=== PATIENT | male | born 1975 | race Caucasian/White ===

== ENCOUNTER 2019-03-01 07:35 | Emergency (ER) | payer OTHER ==
[2019-03-01 07:39] VITALS: TEMP 98.1
[2019-03-01] MEDS ORDERED: KETOROLAC 30 MG/ML 1 ML VIAL IM STA (07:56)
--- NOTE | 2019-03-01 08:01 | ED ---
General Adult HPI - General Chief complaint: Fall Stated complaint: slip & fall/arm pain Time Seen by Provider: 03/01/19 07:41 Source: patient, family, RN notes reviewed Mode of arrival: ambulatory Limitations: no limitations - History of Present Illness Initial comments: 43-year-old male with a past medical history of hypertension presents to the emergency department for a chief of left arm pain. Patient states that just prior to arrival he slipped and fell getting into his truck and landed on his left elbow. States he has pain into his left shoulder. Patient denies hitting his head or neck. States it is painful to move his shoulder.Patient has no other complaints at this time including shortness of breath, chest pain, abdominal pain, nausea or vomiting, headache, or visual changes. - Related Data Allergies Allergy/AdvReac Type Severity Reaction Status Date / Time No Known Allergies Allergy Verified 03/01/19 07:39 Review of Systems ROS Statement: Those systems with pertinent positive or pertinent negative responses have been documented in the HPI. ROS Other: All systems not noted in ROS Statement are negative. Past Medical History Past Medical History: Hypertension History of Any Multi-Drug Resistant Organisms: None Reported Past Surgical History: Cholecystectomy, Orthopedic Surgery Additional Past Surgical History / Comment(s): Vesectomy Past Psychological History: No Psychological Hx Reported Smoking Status: Never smoker Past Alcohol Use History: Occasional Past Drug Use History: None Reported General Exam Limitations: no limitations General appearance: alert, in no apparent distress Head exam: Present: atraumatic, normocephalic, normal inspection Eye exam: Present: normal appearance, PERRL, EOMI. Absent: scleral icterus, conjunctival injection, periorbital swelling ENT exam: Present: normal exam, mucous membranes moist Neck exam: Present: normal inspection. Absent: tenderness, meningismus, lymphadenopathy Respiratory exam: Present: normal lung sounds bilaterally. Absent: respiratory distress, wheezes, rales, rhonchi, stridor Cardiovascular Exam: Present: regular rate, normal rhythm, normal heart sounds. Absent: systolic murmur, diastolic murmur, rubs, gallop, clicks Extremities exam: Present: tenderness (Tenderness to the generalized left shoulder), normal capillary refill (Capillary refill less than 2 seconds, radial pulse 2+ in the left upper extremity), other (Sensation intact in the left upper extremity). Absent: full ROM (Patient unable to move left shoulder secondary to pain) Course Vital Signs 03/01/19 07:37 Temperature 98.1 F Pulse Rate 71 Respiratory 20 Rate Blood Pressure 215/99 O2 Sat by Pulse 99 Oximetry Medical Decision Making - Medical Decision Making X-ray of the left shoulder and left humerus were obtained which showed no acute fracture or dislocation. She was given Toradol and had CT improvement in pain. Blood pressure was rechecked and is 157/98. Hypertension initially likely secondary to pain. Patient was given a sling and I did discuss risk of adhesive capsulitis and to practice range of motion while using this and only to use it when needed. Recommend he follows up with ortho. Recommend he return here if he has any worsening symptoms. Disposition Clinical Impression: Shoulder pain, left Disposition: HOME SELF-CARE Condition: Good Instructions (If sedation given, give patient instructions): Shoulder Pain (ED) Additional Instructions: Please take Motrin for pain. If pain is severe take Tylenol [address] operate machinery while taking Tylenol 3 as this can make you drowsy. Use sling as needed but remember to do range of motion exercises to prevent frozen shoulder. Follow-up with orthopedics in one to 2 days. If you're having any worsening symptoms return to the emergency department. Is patient prescribed a controlled substance at d/c from ED?: No Referrals: Diony Garcia DO [Primary Care Provider] - 1-2 days Bert Figueroa DO [Medical Doctor] - 1-2 days Time of Disposition: 09:17
--- NOTE | 2019-03-01 08:43 | XR ---
EXAMINATION TYPE: XR shoulder complete LT, XR humerus LT DATE OF EXAM: 03/01/2019 CLINICAL HISTORY: Left shoulder and humerus pain after fall TECHNIQUE: Three views of the left shoulder are obtained. 2 views of the left humerus were also obta ined. COMPARISON: None. FINDINGS: There is no acute fracture/dislocation evident in the left shoulder. Subcortical cysts ar e seen in the left humerus, likely from arthropathy. Very minimal arthropathy of the acromioclavicula r joint is seen as small marginal spurs. The acromioclavicular and glenohumeral joint spaces appear a ligned. Old healed left rib fractures are seen. IMPRESSION: There is no acute fracture or dislocation in the left shoulder or humerus.
[2019-03-01] MEDS ORDERED: ACET/COD 300 MG/30 MG STARTER PACK 6 TAB BTL PO STA (09:18)
[2019-03-01 09:34] VITALS: BP 123/76; PULSE 81; RESP 16
== END 2019-03-01 09:32 | disposition home or self-care (01) ==
LOC: EC 07:35
DX: M25.512 Pain in left shoulder (principal); I10 Essential (primary) hypertension
CPT/HCPCS: 73030; 73060; 99283; 96372; J1885

== ENCOUNTER 2020-07-24 15:57 | Emergency (ER) | payer BC, OTHER ==
[2020-07-24 16:03] VITALS: TEMP 98.6
[2020-07-24] MEDS ORDERED: NITROGLYCERIN SL TABS 0.4 MG TAB SUBLINGUAL STA (16:24)
--- NOTE | 2020-07-24 16:27 | ED ---
Chest Pain HPI - General Chief Complaint: Chest Pain Stated Complaint: Chest pain Time Seen by Provider: 07/24/20 16:13 Source: patient Mode of arrival: wheelchair Limitations: no limitations - History of Present Illness Initial Comments: This a 44-year-old male with a history of diabetes, hypertension however not currently treated who presents emergency department for chest pain. The patient states it started this morning. He states it feels like a pressure sensation in the left side of his chest. He states that when started he was just sitting in his truck and not doing anything in particular. He states that nothing seems to make it better or worse however it seemed to worsen throughout the day. He states it then started radiating into his left neck and left arm. No radiation into the back. He states that he got a little bit of dizziness associated with this and also nausea however no vomiting. He states he does have chronic back pain and chronic headaches which are unchanged. He denies any abdominal pain, diarrhea. No fevers or chills. No cough. Patient does not currently feel short of breath or no history of PE or DVT. He states that he picked up a blood pressure cuff and was checking his blood pressure throughout the day today and it was significantly elevated. He called his primary doctor who advised him to come to the emergency department. The patient otherwise states that he believes he had a grandmother with heart disease however no first 3 relatives that he knows about. He is under quite a bit of stress currently because his mother was enrolled in hospice however states he does not feel more stress today than other days. No other complaints. - Related Data Home Medications Medication Instructions Recorded Confirmed Aspirin 162 mg PO ONCE PRN 07/24/20 07/24/20 Ibuprofen [Motrin Ib] 600 mg PO Q8H PRN 07/24/20 07/24/20 metFORMIN HCL 1,000 mg PO BID 07/24/20 07/24/20 Previous Rx's Medication Instructions Recorded amLODIPine [Norvasc] 5 mg PO DAILY #14 tab 07/24/20 Allergies Allergy/AdvReac Type Severity Reaction Status Date / Time No Known Allergies Allergy Verified 07/24/20 16:48 Review of Systems ROS Statement: Those systems with pertinent positive or pertinent negative responses have been documented in the HPI. ROS Other: All systems not noted in ROS Statement are negative. EKG Findings - EKG Comments: EKG Findings:: EKG showing normal sinus rhythm with a rate of 70. No abnormal ST 7 changes or T-wave inversion. QTC is 423. Other intervals normal. No ectopy. Past Medical History Past Medical History: Hypertension History of Any Multi-Drug Resistant Organisms: None Reported Past Surgical History: Cholecystectomy, Orthopedic Surgery Additional Past Surgical History / Comment(s): Vesectomy Past Psychological History: No Psychological Hx Reported Past Alcohol Use History: Occasional Past Drug Use History: None Reported General Exam - General Exam Comments Initial Comments: Constitutional: Awake alert Appears comfortable Head: Normocephalic atraumatic Eyes: no conjunctival injection No scleral icterus EOMI Neck: No JVD Supple Heart: Regular rate rhythm normal S1-S2 no murmurs Lungs: Clear to auscultation bilaterally No wheezing No rales Abdomen: Soft nondistended nontender Extremities: Non edematous DP pulses intact and equal Radial pulses intact and equal Neuro: A&Ox3 No focal neurologic deficits Psych: Appropriate mood and affect Limitations: no limitations Course Vital Signs 07/24/20 07/24/20 07/24/20 16:00 16:46 16:49 Temperature 98.6 F Pulse Rate 78 70 75 Respiratory 20 18 18 Rate Blood Pressure 202/96 168/98 152/93 O2 Sat by Pulse 98 94 L 98 Oximetry 07/24/20 07/24/20 07/24/20 18:06 18:41 20:02 Temperature Pulse Rate 77 86 69 Respiratory 18 18 16 Rate Blood Pressure 157/92 173/109 157/93 O2 Sat by Pulse 98 98 97 Oximetry Chest Pain MDM - MDM This is a 44-year-old male who presents emergency department for chest pain. The patient did have somewhat of concerning story however the symptoms were not exertional. He was given a nitroglycerin in the emergency department and had actually no change in symptoms. However the patient very minimal chest pain while here. He states that he had one episode where it seemed to increase and then went back to the 0. On my final reevaluation the patient was chest pain- free. EKG was unremarkable. Troponin was negative 2. Chest x-ray was negative. The patient had a negative d-dimer. I did give the patient had Norvasc on the emergency department for his significant hypertension. I gave him 2 weeks worth of this as well. Skin follow-up closely with his primary doctor, Dr. John as an outpatient for further evaluation. I did offer him observation in the hospital due to his risk factors however the patient stated that he would prefer to go home and follow-up with his primary doctor. I told to return for any worsening, recurrent, or changing symptoms. Questions were answered. Disposition Clinical Impression: Chest pain Disposition: HOME SELF-CARE Condition: Stable Instructions (If sedation given, give patient instructions): Chest Pain (ED), Hypertension (ED) Prescriptions: amLODIPine [Norvasc] 5 mg PO DAILY #14 tab Is patient prescribed a controlled substance at d/c from ED?: No Referrals: All John MD [Primary Care Provider] - 1-2 days
--- NOTE | 2020-07-24 16:27 | XR ---
EXAMINATION TYPE: XR chest 2V DATE OF EXAM: 07/24/2020 COMPARISON: NONE HISTORY: Chest pain. TECHNIQUE: Frontal and lateral views of the chest are obtained. FINDINGS: There is no focal air space opacity, pleural effusion, or pneumothorax seen. The cardiac silhouette size is mildly enlarged. Age-indeterminate suspected old left lateral rib fractures are pr esent. IMPRESSION: Mild cardiomegaly without acute pulmonary process.
[2020-07-24 16:45] LABS: Basophils % (A) 0 %; Eosinophils # (A) 0.2 k/uL (0-0.7); Eosinophils % (A) 3 %; HCT 44.4 % (39.0-53.0); HGB 15.9 gm/dL (13.0-17.5); Lymphocytes # (A) 1.5 k/uL (1.0-4.8); Lymphocytes % (A) 26 %; MCH 30.4 pg (25.0-35.0); MCHC 35.8 g/dL (31.0-37.0); MCV 84.9 fL (80.0-100.0); Mean Platelet Volume 6.6; Monocytes # (A) 0.3 k/uL (0-1.0); Monocytes % (A) 6 %; Neutrophils # (A) 3.8 k/uL (1.3-7.7); Neutrophils % (A) 65 %; Platelet Count 198 k/uL (150-450); RBC 5.23 m/uL (4.30-5.90); RDW 13.4 % (11.5-15.5); WBC 5.9 k/uL (3.8-10.6)
[2020-07-24 17:00] LABS: ALT 40 U/L (4-49); AST 35 U/L (17-59); African American GFR (CKD) >90 (>60 ml/min/1.73 sqM); Albumin 4.4 g/dL (3.5-5.0); Alkaline Phosphatase 61 U/L (38-126); Anion Gap 8 mmol/L; Blood Urea Nitrogen 15 mg/dL (9-20); Calcium 9.7 mg/dL (8.4-10.2); Carbon Dioxide 24 mmol/L (22-30); Chloride 105 mmol/L (98-107); Glucose 326 mg/dL (74-99); Magnesium 1.5 mg/dL (1.6-2.3); Non-African American GFR(CKD) >90 (>60 ml/min/1.73 sqM); Sodium 137 mmol/L (137-145); Total Bilirubin 0.5 mg/dL (0.2-1.3); Total Protein 7.1 g/dL (6.3-8.2)
[2020-07-24 17:10] LABS: D-Dimer 0.31 mg/L FEU (<0.60); INR 0.9 (<1.2); Partial Thromboplastin Time 21.5 sec (22.0-30.0); Prothrombin Time 10.1 sec (9.0-12.0)
[2020-07-24] MEDS ORDERED: amLODIPine 5 MG TAB PO STA (18:32)
[2020-07-24 20:04] VITALS: BP 157/93; PULSE 69; RESP 16
== END 2020-07-24 20:07 | disposition home or self-care (01) ==
LOC: EC 15:57
DX: R07.89 Other chest pain (principal); R42 Dizziness and giddiness; R11.0 Nausea; M54.9 Dorsalgia, unspecified; R51.9 Headache, unspecified; G89.29 Other chronic pain; E11.9 Type 2 diabetes mellitus without complications; I10 Essential (primary) hypertension; Z79.84 Long term (current) use of oral hypoglycemic drugs; Z79.1 Long term (current) use of non-steroidal anti-inflammatories (NSAID); Z79.899 Other long term (current) drug therapy
CPT/HCPCS: 36415; 71046; 80053; 83735; 83880; 84484; 85025; 85379; 85610; 85730; 93005; 99285

== ENCOUNTER → 2020-08-08 | Outpatient (CLI) | payer BC ==
--- NOTE | 2020-08-08 16:14 | ECHOS ---
STRESS ECHOCARDIOGRAM LUMASON: INDICATIONS: Chest pain. MEDICATIONS: BASELINE HEART RATE: 97 BASELINE BLOOD PRESSURE: 133/80 MAXIMUM HEART RATE: 161 MAXIMUM BLOOD PRESSURE: 201/89 85% MPHR: 150 100% MPHR: 176 METS: 7.3 MAXIMUM STAGE REACHED: 2 TOTAL EXERCISE TIME: 6:01 CLINICAL INFORMATION: Baseline rhythm is sinus mechanism, rate of 97, normal axis and intervals. Poor R progression, cannot exclude inferoapical myocardial infarction. Baseline blood pressure 133/80 mmHg. The patient exercised on Edenilson protocol for 6 minute 1 seconds reaching peak rate 161 beats per minute which is equal to 91% maximum predicted heart rate. Peak blood pressure 201/89 mmHg. The test was terminated secondary to fatigue. There was no chest pain. Electrocardiograph monitoring revealed no evidence of diagnostic ischemic ST deviation. FINDINGS: Baseline echocardiogram revealed normal wall motion. At peak exercise, there was normal wall motion augmentation with no hypokinesis or dyskinesis. CONCLUSION: 1. Decreased exercise tolerance with normal electrocardiograph response to ox in normal echocardiograph response to exercise. 2. Normal stress echocardiogram with no evidence of stress-induced ischemia. MMODL / IJN: [id number] /
== END | disposition home or self-care (01) ==
LOC: RADECHMAIN 11:57
PROVIDERS: ATTEND Family Medicine
DX: R07.9 Chest pain, unspecified (principal)
CPT/HCPCS: 93351

== ENCOUNTER 2022-03-07 05:11 | Emergency (ER) | payer SELFPAY ==
[2022-03-07] MEDS ORDERED: SODIUM CHLORIDE 0.9% 1,000 ML IV STA ×2 (05:16→06:23)
[2022-03-07 05:17] LABS: Glucose,Whole Blood 333 mg/dL (70-110)
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
[2022-03-07 05:25] VITALS: TEMP 98
[2022-03-07 05:27] LABS: Basophils # (A) 0.1 k/uL (0-0.2); Basophils % (A) 1 %; Eosinophils # (A) 0.1 k/uL (0-0.7); Eosinophils % (A) 1 %; HCT 46.1 % (39.0-53.0); HGB 16.5 gm/dL (13.0-17.5); Hyperchromasia Moderate; Lymphocytes # (A) 1.7 k/uL (1.0-4.8); Lymphocytes % (A) 20 %; MCH 29.4 pg (25.0-35.0); MCHC 35.8 g/dL (31.0-37.0); Mean Platelet Volume 6.8; Monocytes # (A) 0.4 k/uL (0-1.0); Monocytes % (A) 5 %; Neutrophils # (A) 6.3 k/uL (1.3-7.7); Neutrophils % (A) 72 %; Platelet Count 240 k/uL (150-450); RBC 5.62 m/uL (4.30-5.90); RDW 12.8 % (11.5-15.5); WBC 8.7 k/uL (3.8-10.6)
[2022-03-07] MEDS ORDERED: NALOXONE 0.4 MG/ML 1 ML VIAL IM STA (05:34)
[2022-03-07 05:37] LABS: ALT 36 U/L (4-49); AST 36 U/L (17-59); African American GFR (CKD) >90 (>60 ml/min/1.73 sqM); Albumin 4.9 g/dL (3.5-5.0); Alkaline Phosphatase 78 U/L (38-126); Anion Gap 19 mmol/L; Blood Urea Nitrogen 10 mg/dL (9-20); Calcium 9.5 mg/dL (8.4-10.2); Carbon Dioxide 19 mmol/L (22-30); Chloride 100 mmol/L (98-107); Glucose 352 mg/dL (74-99); Non-African American GFR(CKD) >90 (>60 ml/min/1.73 sqM); Sodium 138 mmol/L (137-145); Total Bilirubin 0.6 mg/dL (0.2-1.3); Total Protein 8.1 g/dL (6.3-8.2)
[2022-03-07 05:42] LABS: Partial Thromboplastin Time 21.5 sec (22.0-30.0); Prothrombin Time 10.5 sec (9.0-12.0)
[2022-03-07] MEDS ORDERED: ONDANSETRON 4 MG/2 ML VIAL IVP STA (05:42)
[2022-03-07 05:43] LABS: Alcohol 132 mg/dL
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
[2022-03-07 06:37] VITALS: BP 142/89; PULSE 107; RESP 14
[2022-03-07 06:50] LABS: Amphetamine Screen,Urine Not Detected (NotDetected); Barbiturate Screen,Urine Not Detected (NotDetected); Benzodiazepines Screen,Urine Not Detected (NotDetected); Cocaine Screen,Urine Detected (NotDetected); Methadone Screen, Urine Not Detected (NotDetected); Opiate Screen,Urine Not Detected (NotDetected); Oxycodone Screen, Urine Not Detected (NotDetected); Phencyclidine Screen,Urine Not Detected (NotDetected); Tricyclic Antidepressant,Urine Not Detected (NotDetected); Urn Cannabinoid Scrn Not Detected (NotDetected)
== END 2022-03-07 07:38 | disposition home or self-care (01) ==
LOC: EC 05:11
DX: S20.211A Contusion of right front wall of thorax, initial encounter (principal); T40.2X1A Poisoning by other opioids, accidental (unintentional), initial encounter; M47.812 Spondylosis without myelopathy or radiculopathy, cervical region; F10.129 Alcohol abuse with intoxication, unspecified; I47.1 Supraventricular tachycardia; I10 Essential (primary) hypertension; Z79.82 Long term (current) use of aspirin; Z79.899 Other long term (current) drug therapy; V89.2XXA Person injured in unspecified motor-vehicle accident, traffic, initial encounter; Y92.411 Interstate highway as the place of occurrence of the external cause
CPT/HCPCS: 36415; 93005; 86900; 86901; 80053; 84484; 85025; 85610; 85730; 86850; 80306; 80320; 72170; 73080; 71045; 72125; 70450; 71260; 74177; 99291; 96374; 96361 ×2; 96372; J2310; J2405; Q9967

== ENCOUNTER 2022-12-27 10:17 | Emergency (ER) | payer SELFPAY ==
[2022-12-27] MEDS ORDERED: KETOROLAC 15 MG/ML 1 ML VIAL IVP STA (10:28)
[2022-12-27] MEDS ORDERED: HYDROmorphone 1 MG/ML 1 ML SYRINGE IVP STA ×2 (10:29→10:46)
[2022-12-27] MEDS ORDERED: ONDANSETRON 4 MG/2 ML VIAL IVP STA (10:29)
[2022-12-27 10:33] VITALS: TEMP 97.5
--- NOTE | 2022-12-27 10:33 | ED ---
General Adult HPI - General Chief complaint: Extremity Injury, Upper Stated complaint: Fall, right shoulder injury Time Seen by Provider: 12/27/22 10:27 Source: patient, RN notes reviewed, old records reviewed Mode of arrival: wheelchair Limitations: physical limitation - History of Present Illness Initial comments: 47-year-old male with fall, right shoulder injury. Patient had obvious deformity to the right shoulder. He denies head or neck trauma. Denies any other extremity injury. Pain is isolated to the right shoulder. - Related Data Home Medications Medication Instructions Recorded Confirmed Aspirin 162 mg PO ONCE PRN 07/24/20 07/24/20 Ibuprofen [Motrin Ib] 600 mg PO Q8H PRN 07/24/20 07/24/20 metFORMIN HCL [Glucophage] 1,000 mg PO BID 07/24/20 07/24/20 Previous Rx's Medication Instructions Recorded amLODIPine [Norvasc] 5 mg PO DAILY #14 tab 07/24/20 Ibuprofen [Motrin] 600 mg PO Q8HR PRN #24 tab 12/27/22 Allergies Allergy/AdvReac Type Severity Reaction Status Date / Time No Known Allergies Allergy Verified 12/27/22 10:23 Review of Systems ROS Statement: Those systems with pertinent positive or pertinent negative responses have been documented in the HPI. ROS Other: All systems not noted in ROS Statement are negative. Past Medical History Past Medical History: Hypertension History of Any Multi-Drug Resistant Organisms: None Reported Past Surgical History: Cholecystectomy, Orthopedic Surgery Additional Past Surgical History / Comment(s): Vesectomy Past Psychological History: No Psychological Hx Reported Smoking Status: Never smoker Past Alcohol Use History: Occasional Past Drug Use History: None Reported General Exam Limitations: physical limitation General appearance: alert, in no apparent distress Head exam: Present: atraumatic, normocephalic Eye exam: Present: normal appearance, PERRL ENT exam: Present: normal exam Neck exam: Present: normal inspection. Absent: tenderness, meningismus Respiratory exam: Present: normal lung sounds bilaterally. Absent: respiratory distress, wheezes Cardiovascular Exam: Present: regular rate, normal rhythm GI/Abdominal exam: Present: soft. Absent: distended, tenderness, guarding Extremities exam: Present: other (Deformity of the right shoulder, suspect dislocation, distal pulses intact, decreased range of motion of the and, decreased compliance auditor strength.) Neurological exam: Present: alert, oriented X3, CN II-XII intact, motor sensory deficit Psychiatric exam: Present: anxious Skin exam: Present: warm, dry, intact Course Vital Signs 12/27/22 12/27/22 12/27/22 10:21 11:19 11:27 Temperature 97.5 F L Pulse Rate 77 78 105 H Respiratory 34 H 18 20 Rate Blood Pressure 198/95 216/104 185/93 O2 Sat by Pulse 99 92 L 96 Oximetry 12/27/22 12/27/22 11:32 11:45 Temperature Pulse Rate 86 75 Respiratory 20 16 Rate Blood Pressure 164/97 159/91 O2 Sat by Pulse 93 L Oximetry - Reevaluation(s) Reevaluation #1: 12/27/22 12:20 Case discussed with orthopedics regarding decreased compliance auditor strength, will arrange for close outpatient follow-up. Procedures - Orthopedic Joint Reduction Joint #1 Consent Obtained: written consent Side: right Joint Reduction Location: shoulder Analgesia: procedural sedation Shoulder Technique Used (if applicable): traction/counter-traction Post-Reduction Neuro Exam: no change Post-Reduction Vascular Exam: intact Post Reduction X-Ray Obtained: Yes Post Reduction X-Ray Results: reduced Splint Applied: Yes Patient Tolerated Procedure: well - Procedural Sedation *Procedural Sedation Start Time: 11:26 *Procedural Sedation Stop Time: 12:20 *Risks,benefits, and alternative therapies discussed?: Yes *Patient indicates understanding of risk/benefit discussion?: Yes *Indications: fracture/dislocation reduction *Previous Adverse Reaction to Anesthesia/Sedation?: No *ASA Class: I *Mallampati Airway Score: 2 Preparation: satellite project site monitor applied, pulse oximeter, capnometry used, supplemental O2 applied, suction/airway equipment at bedside IV Propofol Dose (mgs): 120 Complications: none Patient Tolerated Procedure: well Medical Decision Making - Medical Decision Making Was pt. sent in by a medical professional or institution (, PA, ENTERPRISE ARCHITECT MANAGER, urgent care, hospital, or [facility]...) When possible be specific @ -No Did you speak to anyone other than the patient for history (EMS, parent, family, police, friend...)? What history was obtained from this source @ -No Did you review nursing and triage notes (agree or disagree)? Why? @ -I reviewed and agree with nursing and triage notes Were old charts reviewed (outside hosp., previous admission, EMS record, old EKG, old radiological studies, urgent care reports/EKG's, [facility] records)? Report findings @ -No old charts were reviewed Differential Diagnosis (chest pain, altered mental status, abdominal pain women, abdominal pain men, vaginal bleeding, weakness, fever, dyspnea, syncope, headache, dizziness, GI bleed, back pain, seizure, CVA, palpatations, mental health, musculoskeletal)? @ -Differential Musculoskeletal Muscular strain, contusion, ligament sprain, fracture, arthritis, septic arthritis, bursitis, cellulitis, muscle spasm, nerve compression, DVT, arterial occlusion, herpes zoster, electrolyte abnormality, tumor.... This is not meant to be in all inclusive list EKG interpreted by me (3pts min.). @ -As above X-rays interpreted by me (1pt min.). @ -Initial x-ray shows anterior-inferior shoulder dislocation post reduction film shows satisfactory reduction. CT interpreted by me (1pt min.). @ -None done U/S interpreted by me (1pt. min.). @ -None done What testing was considered but not performed or refused? (CT, X-rays, U/S, labs)? Why? @ -None What meds were considered but not given or refused? Why? @ -None Did you discuss the management of the patient with other professionals (professionals i.e. , PA, ENTERPRISE ARCHITECT MANAGER, lab, RT, psych nurse, transition social worker, associate store leader, teacher, chief growth officer, leather case finisher)? Give summary @ -No Was smoking cessation discussed for >3mins.? @ -No Was critical care preformed (if so, how long)? @ -No Were there social determinants of health that impacted care today? How? (Homelessness, low income, unemployed, alcoholism, drug addiction, transportation, low edu. Level, literacy, decrease access to med. care, alf, rehab)? @ -No Was there de-escalation of care discussed even if they declined (Discuss DNR or withdrawal of care, Hospice)? DNR status @ -No What co-morbidities impacted this encounter? (DM, HTN, Smoking, COPD, CAD, Cancer, CVA, ARF, Chemo, Hep., AIDS, mental health diagnosis, sleep apnea, morbid obesity)? @ -None Was patient admitted / discharged? Hospital course, mention meds given and route, prescriptions, significant lab abnormalities, going to OR and other pertinent info. @27-year-old male with right shoulder dislocation. Patient has intact pulses but decreased sensation and decreased compliance auditor strength in the right hand after the injury. He receives procedural sedation for shoulder dislocation. This was successful. He has intact pulse and some improvement in movement of the right hand but has significantly reduced compliance auditor strength. He's placed in a sling. He will follow closely with orthopedics. Undiagnosed new problem with uncertain prognosis? @ -No Drug Therapy requiring intensive monitoring for toxicity (Heparin, Nitro, Insulin, Cardizem)? @ -No Were any procedures done? @ -[Yes, procedural sedation and shoulder reduction Diagnosis/symptom? @Right shoulder dislocation Acute, or Chronic, or Acute on Chronic? @ -Acute Uncomplicated (without systemic symptoms) or Complicated (systemic symptoms)? @ -[Complicated Side effects of treatment? @ -No Exacerbation, Progression, or Severe Exacerbation? @ -No Poses a threat to life or bodily function? How? (Chest pain, [place], [place], pneumonia, PE, COPD, DKA, ARF, appy, cholecystitis, CVA, Diverticulitis, Homicidal, Suicidal, threat to staff... and all critical care pts) @ -[Yes, risk of function to the right upper extremity Disposition Clinical Impression: Dislocation of shoulder region Disposition: HOME SELF-CARE Condition: Fair Instructions (If sedation given, give patient instructions): Shoulder Dislocation (ED) Prescriptions: Ibuprofen [Motrin] 600 mg PO Q8HR PRN #24 tab PRN Reason: Pain Is patient prescribed a controlled substance at d/c from ED?: No Referrals: Westley Patel Jr, DO [Primary Care Provider] - 1-2 days Desi Paez DO [Doctor of Osteopathic Medicine] - 1-2 days Time of Disposition: 12:25
[2022-12-27] MEDS ORDERED: PROPOFOL 10 MG/ML 20 ML VIAL IV ONE (11:15)
--- NOTE | 2022-12-27 11:25 | XR ---
EXAMINATION TYPE: XR shoulder limited RT DATE OF EXAM: 12/27/2022 COMPARISON: None HISTORY: Fall, dislocation TECHNIQUE: 2 view right shoulder FINDINGS: There is an anterior inferior dislocation of the right shoulder in relation to the glenoid. Acromioclavicular junction appears intact. No acute fractures are identified. IMPRESSION: 1. Anterior-inferior dislocation right humeral head glenoid.
--- NOTE | 2022-12-27 12:08 | XR ---
EXAMINATION TYPE: XR shoulder limited RT DATE OF EXAM: 12/27/2022 COMPARISON: Earlier exam HISTORY: Dislocation TECHNIQUE: AP right shoulder single view FINDINGS: Humeral head appears to articulate with the glenoid in this projection. Acromiohumeral join t space is preserved. No acute fractures are evident. IMPRESSION: 1. Reduction of previous dislocation right shoulder
[2022-12-27 12:30] VITALS: BP 161/84; PULSE 72; RESP 20
== END 2022-12-27 12:58 | disposition home or self-care (01) ==
LOC: EC 10:17
DX: S43.004A Unspecified dislocation of right shoulder joint, initial encounter (principal); I10 Essential (primary) hypertension; Z79.899 Other long term (current) drug therapy; Z79.82 Long term (current) use of aspirin; Z90.49 Acquired absence of other specified parts of digestive tract; X58.XXXA Exposure to other specified factors, initial encounter
CPT/HCPCS: 99283; 96374; 96375 ×2; 23650; 73020; 99152; 99153 ×3; L3670; J2405; J1170; J1885; J2704

== ENCOUNTER 2024-06-18 20:43 | Inpatient (IN) | payer MEDICAID, OTHER ==
[2024-06-18 20:53] LABS: Glucose,Whole Blood 519 mg/dL (70-110)
[2024-06-18] MEDS: SODIUM CHLORIDE 0.9% 1,000 ML IV STA (21:11)
[2024-06-18 21:23] LABS: Basophils # (A) 0.07 10*3/uL (0.00-0.10); Basophils % (A) 0.7 %; Eosinophils # (A) 0.13 10*3/uL (0.04-0.35); Eosinophils % (A) 1.4 %; HCT 43.5 % (39.6-50.0); HGB 16.3 g/dL (13.0-17.0); Lymphocytes # (A) 1.89 10*3/uL (0.90-5.00); Lymphocytes % (A) 20.2 %; MCH 30.7 pg (27.0-32.0); MCHC 37.5 g/dL (32.0-37.0); MCV 81.9 fL (80.0-97.0); Mean Platelet Volume 9.3 fL (9.5-12.2); Monocytes # (A) 0.71 10*3/uL (0.20-1.00); Monocytes % (A) 7.6 %; Neutrophils # (A) 6.52 10*3/uL (1.80-7.70); Neutrophils % (A) 69.7 %; Platelet Count 220 10*3/uL (140-440); RBC 5.31 10*6/uL (4.40-5.60); RDW 12.1 % (11.5-14.5); WBC 9.36 10*3/uL (4.50-10.00)
[2024-06-18 21:38] LABS: ALT 37 U/L (4-49); AST 30 U/L (17-59); African American GFR (CKD) >90 (>60 ml/min/1.73 sqM); Albumin 4.3 g/dL (3.5-5.0); Alcohol <10 mg/dL; Alkaline Phosphatase 63 U/L (38-126); Anion Gap 14 mmol/L; Blood Urea Nitrogen 13 mg/dL (9-20); Calcium 9.8 mg/dL (8.4-10.2); Carbon Dioxide 23 mmol/L (22-30); Chloride 99 mmol/L (98-107); Glucose 500 mg/dL (74-99); Lipase 551 U/L (23-300); Non-African American GFR(CKD) >90 (>60 ml/min/1.73 sqM); Potassium 4.1 mmol/L (3.5-5.1); Salicylate <1.0 mg/dL; Sodium 136 mmol/L (137-145); Total Bilirubin 0.7 mg/dL (0.2-1.3); Total Protein 7.1 g/dL (6.3-8.2)
[2024-06-18 21:41] LABS: Appearance,Urine Clear (Clear); Bilirubin,Urine Negative (Negative); Blood,Urine Trace (Negative); Color,Urine Colorless; Glucose,Urine (UA) 4+ (Negative); Ketones,Urine Negative (Negative); Leukocyte Esterase,Urine Negative (Negative); Mucus,Urine Rare /hpf; Nitrite,Urine Negative (Negative); PH, Urine 5.5 (5.0-8.0); Protein,Urine Trace (Negative); RBC,Urine 1 /hpf (0-5); Specific Gravity,Urine 1.033 (1.001-1.035); Urobilinogen,Urine <2.0 mg/dL (<2.0); WBC,Urine <1 /hpf (0-5)
[2024-06-18 21:43] LABS: Prothrombin Time 11.1 sec (10.0-12.5)
--- NOTE | 2024-06-18 21:53 | ED ---
Overdose HPI - General Chief Complaint: Overdose Stated Complaint: Overdose Source: patient, EMS Mode of arrival: EMS - History of Present Illness Initial Comments: 48-year-old male presenting to the ER after suicide attempt. Patient took 30 capsules of NyQuil, drinking 1 bottle of NyQuil and drink 1 bottle of DayQuil. Patient reports things have been hard and that he had been planning this for approximately 1 month. - Related Data Home Medications Medication Instructions Recorded Confirmed Aspirin 162 mg PO ONCE PRN 07/24/20 07/24/20 Ibuprofen [Motrin Ib] 600 mg PO Q8H PRN 07/24/20 07/24/20 metFORMIN HCL [Glucophage] 1,000 mg PO BID 07/24/20 07/24/20 Previous Rx's Medication Instructions Recorded amLODIPine [Norvasc] 5 mg PO DAILY #14 tab 07/24/20 Ibuprofen [Motrin] 600 mg PO Q8HR PRN #24 tab 12/27/22 Allergies Allergy/AdvReac Type Severity Reaction Status Date / Time No Known Allergies Allergy Verified 06/18/24 20:56 Review of Systems ROS Statement: Those systems with pertinent positive or pertinent negative responses have been documented in the HPI. ROS Other: All systems not noted in ROS Statement are negative. Constitutional: Denies: fever, chills Respiratory: Denies: cough, dyspnea Cardiovascular: Denies: chest pain Past Medical History Past Medical History: Hypertension History of Any Multi-Drug Resistant Organisms: None Reported Past Surgical History: Cholecystectomy, Orthopedic Surgery Additional Past Surgical History / Comment(s): Vesectomy Past Psychological History: No Psychological Hx Reported Smoking Status: Never smoker Past Alcohol Use History: Occasional Past Drug Use History: None Reported General Exam General appearance: obtunded Respiratory exam: Present: normal lung sounds bilaterally. Absent: respiratory distress GI/Abdominal exam: Present: soft. Absent: distended, tenderness Course Vital Signs 06/18/24 06/18/24 06/18/24 20:52 20:57 21:01 Temperature 98.8 F Pulse Rate 86 86 Respiratory 15 16 Rate Blood Pressure 192/108 175/96 O2 Sat by Pulse 93 L 97 96 Oximetry Medical Decision Making - Medical Decision Making Was pt. sent in by a medical professional or institution (, PA, REGISTERED PHARMACIST, urgent care, hospital, or fpc...) When possible be specific @ -[No] Did you speak to anyone other than the patient for history (EMS, parent, family, police, friend...)? What history was obtained from this source @ -Case was discussed with EMS. Did you review nursing and triage notes (agree or disagree)? Why? @ -[I reviewed and agree with nursing and triage notes] Were old charts reviewed (outside hosp., previous admission, EMS record, old EKG, old radiological studies, urgent care reports/EKG's, [facility]pc records)? Report findings @ -[No old charts were reviewed] Differential Diagnosis? @ -Differential Altered Mental Status: Hypoglycemia, DKA, hypercapnia, ETOH, overdose, CO poisoning, trauma, myxedema coma, HTN encephalopathy, infection, encephalitis, psychosis, intercranial hemorrhage, hepatic encephalopathy, meningitis, CVA, this is not meant to be an all-inclusive list EKG interpreted by me (3pts min.). @ -EKG shows sinus rhythm, ventricular rate 90 bpm, QTc 423 ms. X-rays interpreted by me (1pt min.). @ -[None done] CT interpreted by me (1pt min.). @ -[None done] U/S interpreted by me (1pt. min.). @ -[None done] What testing was considered but not performed or refused? (CT, X-rays, U/S, labs)? Why? @ -[None] What meds were considered but not given or refused? Why? @ -[None] Did you discuss the management of the patient with other professionals (professionals i.e. , PA, REGISTERED PHARMACIST, lab, RT, psych nurse, long term care social worker, parts order and stock clerk, teacher, multisensor intelligence officer, case management assistant)? Give summary @ -Case was discussed with ED attending physician Dr. Bro. Was smoking cessation discussed for >3mins.? @ -[No] Was critical care preformed (if so, how long)? @ -[No] Were there social determinants of health that impacted care today? How? (Homelessness, low income, unemployed, alcoholism, drug addiction, transportation, low edu. Level, literacy, decrease access to med. care, retirement, rehab)? @ -[No] Was there de-escalation of care discussed even if they declined (Discuss DNR or withdrawal of care, Hospice)? DNR status @ -[No] What co-morbidities impacted this encounter? (DM, HTN, Smoking, COPD, CAD, Cancer, CVA, ARF, Chemo, Hep., AIDS, mental health diagnosis, sleep apnea, morbid obesity)? @ -[None] Was patient admitted / discharged? Hospital course, mention meds given and route, prescriptions, significant lab abnormalities, going to OR and other pertinent info. @ -Dispo pending EPS evaluation. Undiagnosed new problem with uncertain prognosis? @ -[No] Drug Therapy requiring intensive monitoring for toxicity (Heparin, Nitro, Insulin, Cardizem)? @ -[No] Were any procedures done? @ -[No] Diagnosis/symptom? @ -Overdose Acute, or Chronic, or Acute on Chronic? @ -Acute Uncomplicated (without systemic symptoms) or Complicated (systemic symptoms)? @ -[default] Side effects of treatment? @ -[No] Exacerbation, Progression, or Severe Exacerbation? @ -[No] Poses a threat to life or bodily function? How? (Chest pain, [place], [place], pneumonia, PE, COPD, DKA, ARF, appy, cholecystitis, CVA, Diverticulitis, Homicidal, Suicidal, threat to staff... and all critical care pts) @ -Yes, overdose can cause multisystem organ failure. - Lab Data Result diagrams: 06/18/24 20:53 06/18/24 20:53 Lab Results 06/18/24 06/18/24 06/18/24 Range/Units 20:51 20:53 20:53 WBC 9.36 (4.50-10.00) 10*3/uL RBC 5.31 (4.40-5.60) 10*6/uL Hgb 16.3 (13.0-17.0) g/dL Hct 43.5 (39.6-50.0) % MCV 81.9 (80.0-97.0) fL MCH 30.7 (27.0-32.0) pg MCHC 37.5 H (32.0-37.0) g/dL Plt Count 220 (140-440) 10*3/uL MPV 9.3 L (9.5-12.2) fL Immature Gran % (Auto) 0.4 % Neutrophils % 69.7 % Lymphocytes % 20.2 % Monocytes % 7.6 % Eosinophils % 1.4 % Basophils % 0.7 % Immature Gran # 0.04 (0.00-0.04) 10*3/uL Neutrophils # 6.52 (1.80-7.70) 10*3/uL Lymphocytes # 1.89 (0.90-5.00) 10*3/uL Monocytes # 0.71 (0.20-1.00) 10*3/uL Eosinophils # 0.13 (0.04-0.35) 10*3/uL Basophils # 0.07 (0.00-0.10) 10*3/uL PT 11.1 (10.0-12.5) sec INR 1.0 (<1.2) Sodium (137-145) mmol/L Potassium (3.5-5.1) mmol/L Chloride (98-107) mmol/L Carbon Dioxide (22-30) mmol/L Anion Gap mmol/L BUN (9-20) mg/dL Creatinine (0.66-1.25) mg/dL Est GFR (CKD-EPI)AfAm (>60 ml/min/1.73 sqM) Est GFR (CKD-EPI)NonAf (>60 ml/min/1.73 sqM) Glucose (74-99) mg/dL POC Glucose (mg/dL) 519 H* (70-110) mg/dL POC Glu Switchboard Clerk ID Kilo Dottie Calcium (8.4-10.2) mg/dL Total Bilirubin (0.2-1.3) mg/dL AST (17-59) U/L ALT (4-49) U/L Alkaline Phosphatase (38-126) U/L Troponin I (0.000-0.034) ng/mL Total Protein (6.3-8.2) g/dL Albumin (3.5-5.0) g/dL Lipase (23-300) U/L Urine Color Urine Appearance (Clear) Urine pH (5.0-8.0) Ur Specific [place] (1.001-1.035) Urine Protein (Negative) Urine Glucose (UA) (Negative) Urine Ketones (Negative) Urine Blood (Negative) Urine Nitrite (Negative) Urine Bilirubin (Negative) Urine Urobilinogen (<2.0) mg/dL Ur Leukocyte Esterase (Negative) Urine RBC (0-5) /hpf Urine WBC (0-5) /hpf Urine Mucus (None) /hpf Salicylates mg/dL Urine Opiates Screen (NotDetected) Ur Oxycodone Screen (NotDetected) Urine Methadone Screen (NotDetected) Acetaminophen ug/mL Ur Barbiturates Screen (NotDetected) U Tricyclic Antidepress (NotDetected) Ur Phencyclidine Scrn (NotDetected) Ur Amphetamines Screen (NotDetected) U Methamphetamines Scrn (NotDetected) U Benzodiazepines Scrn (NotDetected) Urine Cocaine Screen (NotDetected) U Marijuana (THC) Screen (NotDetected) Serum Alcohol mg/dL 06/18/24 06/18/24 06/18/24 Range/Units 20:53 20:53 21:25 WBC (4.50-10.00) 10*3/uL RBC (4.40-5.60) 10*6/uL Hgb (13.0-17.0) g/dL Hct (39.6-50.0) % MCV (80.0-97.0) fL MCH (27.0-32.0) pg MCHC (32.0-37.0) g/dL Plt Count (140-440) 10*3/uL MPV (9.5-12.2) fL Immature Gran % (Auto) % Neutrophils % % Lymphocytes % % Monocytes % % Eosinophils % % Basophils % % Immature Gran # (0.00-0.04) 10*3/uL Neutrophils # (1.80-7.70) 10*3/uL Lymphocytes # (0.90-5.00) 10*3/uL Monocytes # (0.20-1.00) 10*3/uL Eosinophils # (0.04-0.35) 10*3/uL Basophils # (0.00-0.10) 10*3/uL PT (10.0-12.5) sec INR (<1.2) Sodium 136 L (137-145) mmol/L Potassium 4.1 (3.5-5.1) mmol/L Chloride 99 (98-107) mmol/L Carbon Dioxide 23 (22-30) mmol/L Anion Gap 14 mmol/L BUN 13 (9-20) mg/dL Creatinine 0.67 (0.66-1.25) mg/dL Est GFR (CKD-EPI)AfAm >90 (>60 ml/min/1.73 sqM) Est GFR (CKD-EPI)NonAf >90 (>60 ml/min/1.73 sqM) Glucose 500 H (74-99) mg/dL POC Glucose (mg/dL) (70-110) mg/dL POC Glu Switchboard Clerk ID Calcium 9.8 (8.4-10.2) mg/dL Total Bilirubin 0.7 (0.2-1.3) mg/dL AST 30 (17-59) U/L ALT 37 (4-49) U/L Alkaline Phosphatase 63 (38-126) U/L Troponin I <0.012 (0.000-0.034) ng/mL Total Protein 7.1 (6.3-8.2) g/dL Albumin 4.3 (3.5-5.0) g/dL Lipase 551 H (23-300) U/L Urine Color Colorless Urine Appearance Clear (Clear) Urine pH 5.5 (5.0-8.0) Ur Specific [place] 1.033 (1.001-1.035) Urine Protein Trace H (Negative) Urine Glucose (UA) 4+ H (Negative) Urine Ketones Negative (Negative) Urine Blood Trace H (Negative) Urine Nitrite Negative (Negative) Urine Bilirubin Negative (Negative) Urine Urobilinogen <2.0 (<2.0) mg/dL Ur Leukocyte Esterase Negative (Negative) Urine RBC 1 (0-5) /hpf Urine WBC <1 (0-5) /hpf Urine Mucus Rare H (None) /hpf Salicylates <1.0 mg/dL Urine Opiates Screen Not Detected (NotDetected) Ur Oxycodone Screen Not Detected (NotDetected) Urine Methadone Screen Not Detected (NotDetected) Acetaminophen 53.6 H* ug/mL Ur Barbiturates Screen Not Detected (NotDetected) U Tricyclic Antidepress Not Detected (NotDetected) Ur Phencyclidine Scrn Not Detected (NotDetected) Ur Amphetamines Screen Not Detected (NotDetected) U Methamphetamines Scrn Not Detected (NotDetected) U Benzodiazepines Scrn Not Detected (NotDetected) Urine Cocaine Screen Not Detected (NotDetected) U Marijuana (THC) Screen Not Detected (NotDetected) Serum Alcohol <10 mg/dL 04/28/25 Range/Units 22:57 WBC (4.50-10.00) 10*3/uL RBC (4.40-5.60) 10*6/uL Hgb (13.0-17.0) g/dL Hct (39.6-50.0) % MCV (80.0-97.0) fL MCH (27.0-32.0) pg MCHC (32.0-37.0) g/dL Plt Count (140-440) 10*3/uL MPV (9.5-12.2) fL Immature Gran % (Auto) % Neutrophils % % Lymphocytes % % Monocytes % % Eosinophils % % Basophils % % Immature Gran # (0.00-0.04) 10*3/uL Neutrophils # (1.80-7.70) 10*3/uL Lymphocytes # (0.90-5.00) 10*3/uL Monocytes # (0.20-1.00) 10*3/uL Eosinophils # (0.04-0.35) 10*3/uL Basophils # (0.00-0.10) 10*3/uL PT (10.0-12.5) sec INR (<1.2) Sodium (137-145) mmol/L Potassium (3.5-5.1) mmol/L Chloride (98-107) mmol/L Carbon Dioxide (22-30) mmol/L Anion Gap mmol/L BUN (9-20) mg/dL Creatinine (0.66-1.25) mg/dL Est GFR (CKD-EPI)AfAm (>60 ml/min/1.73 sqM) Est GFR (CKD-EPI)NonAf (>60 ml/min/1.73 sqM) Glucose (74-99) mg/dL POC Glucose (mg/dL) (70-110) mg/dL POC Glu Switchboard Clerk ID Calcium (8.4-10.2) mg/dL Total Bilirubin (0.2-1.3) mg/dL AST (17-59) U/L ALT (4-49) U/L Alkaline Phosphatase (38-126) U/L Troponin I (0.000-0.034) ng/mL Total Protein (6.3-8.2) g/dL Albumin (3.5-5.0) g/dL Lipase (23-300) U/L Urine Color Urine Appearance (Clear) Urine pH (5.0-8.0) Ur Specific [place] (1.001-1.035) Urine Protein (Negative) Urine Glucose (UA) (Negative) Urine Ketones (Negative) Urine Blood (Negative) Urine Nitrite (Negative) Urine Bilirubin (Negative) Urine Urobilinogen (<2.0) mg/dL Ur Leukocyte Esterase (Negative) Urine RBC (0-5) /hpf Urine WBC (0-5) /hpf Urine Mucus (None) /hpf Salicylates mg/dL Urine Opiates Screen (NotDetected) Ur Oxycodone Screen (NotDetected) Urine Methadone Screen (NotDetected) Acetaminophen 39.3 ug/mL Ur Barbiturates Screen (NotDetected) U Tricyclic Antidepress (NotDetected) Ur Phencyclidine Scrn (NotDetected) Ur Amphetamines Screen (NotDetected) U Methamphetamines Scrn (NotDetected) U Benzodiazepines Scrn (NotDetected) Urine Cocaine Screen (NotDetected) U Marijuana (THC) Screen (NotDetected) Serum Alcohol mg/dL Disposition Clinical Impression: Suicide attempt by multiple drug overdose Referrals: Westley Patel Jr, [Primary Care Provider] - 1-2 days
[2024-06-18 21:55] LABS: Acetaminophen 53.6 ug/mL
[2024-06-18 21:58] LABS: Amphetamine Screen,Urine Not Detected (NotDetected); Barbiturate Screen,Urine Not Detected (NotDetected); Benzodiazepines Screen,Urine Not Detected (NotDetected); Cocaine Screen,Urine Not Detected (NotDetected); Methadone Screen, Urine Not Detected (NotDetected); Opiate Screen,Urine Not Detected (NotDetected); Oxycodone Screen, Urine Not Detected (NotDetected); Phencyclidine Screen,Urine Not Detected (NotDetected); Tricyclic Antidepressant,Urine Not Detected (NotDetected); Urn Cannabinoid Scrn Not Detected (NotDetected)
[2024-06-18] MEDS: SODIUM CHLORIDE 0.9% 1,000 ML IV ONE (23:04)
[2024-06-19] MEDS: INSULIN REGULAR 100 UNIT/ML VIAL (IV) IV ONE (00:24)
[2024-06-19] MEDS: INSULIN LISPRO (HumaLOG) 100 UNIT/ML 10 mL VL SQ STA (00:33)
[2024-06-19 01:48] LABS: Glucose,Whole Blood 342 mg/dL (70-110)
[2024-06-19] MEDS: amLODIPine 10 MG TAB PO STA (03:43)
[2024-06-19] MEDS ORDERED: MAG HYDROX/AL HYDROX/SIMETH 355 ML BOTTLE PO PRN ×2 (04:33→07:11)
[2024-06-19] MEDS ORDERED: IBUPROFEN 600 MG TAB PO PRN ×2 (04:33→07:11)
[2024-06-19] MEDS ORDERED: HALOPERIDOL LACTATE 5 MG/ML 1 ML VIAL IM PRN ×2 (04:33→07:13)
[2024-06-19] MEDS ORDERED: haloperidoL 5 MG TAB PO PRN ×2 (04:33→07:12)
[2024-06-19] MEDS ORDERED: LORazepam 1 MG TAB PO PRN ×2 (04:33→07:12)
[2024-06-19] MEDS ORDERED: LORazepam 2 MG/ML INJ IM PRN ×2 (04:33→07:12)
[2024-06-19] MEDS ORDERED: MAGNESIUM HYDROXIDE 2,400 MG/30 ML CUP PO PRN ×2 (04:33→07:11)
[2024-06-19] MEDS ORDERED: ACETAMINOPHEN TAB 325 MG TAB PO PRN ×2 (04:33→07:10)
[2024-06-19] MEDS: cloNIDine HCL 0.2 MG TAB PO STA (06:34)
[2024-06-19] MEDS ORDERED: metFORMIN 500 MG TAB PO SCH (07:30)
[2024-06-19 07:51] LABS: Glucose,Whole Blood 330 mg/dL (70-110)
[2024-06-19] MEDS: metFORMIN 500 MG TAB PO SCH (08:05)
[2024-06-19] MEDS: INSULIN LISPRO (HumaLOG) 100 UNIT/ML 10 mL VL SQ SCH (08:05)
[2024-06-19] MEDS: NICOTINE 14MG/24HR PATCH TRANSDERM SCH (08:06)
[2024-06-19] MEDS ORDERED: NICOTINE 14MG/24HR PATCH TRANSDERM SCH (09:00)
[2024-06-19] MEDS: SERTRALINE 50 MG TAB PO SCH (10:55)
[2024-06-19] MEDS: ARIPiprazole 5 MG TAB PO SCH (10:55)
[2024-06-19 12:54] LABS: Glucose,Whole Blood 259 mg/dL (70-110)
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
[2024-06-19 17:45] LABS: Glucose,Whole Blood 244 mg/dL (70-110)
[2024-06-19 20:17] LABS: Glucose,Whole Blood 264 mg/dL (70-110)
--- NOTE | 2024-06-20 03:07 | P.MDCNMH ---
History of Present Illness H&P Date: 06/19/24 48 year old male with diabetes mellitus and hypertension patient presented with suicidal ideation , he has poorly controlled diabetes on metformin but non compliant he denies any fever, chills, cough, sore throat, chest pain , trouble breathing , nausea , vomiting, abd pain , changes in urinary or bowel habits. he denies smoking and alcohol review of systems Pertinent positives as noted in HPI. All other systems were reviewed and are negative on exam Constitutional: No acute distress, conversant, pleasant Eyes: Anicteric sclerae, moist conjunctiva, Pupils equal round reactive to light ENMT: NC/AT Oropharynx clear, no erythema, or exudates Lungs: Clear to auscultation Clear to percussion Normal respiratory effort, no accessory muscle use Cardiovascular: Heart regular in rate and rhythm, No murmurs, gallops, or rubs No peripheral edema Abdominal: Soft Nontender, no guarding, rebound or rigidity Abdomen moving with respiration Normoactive bowel sounds Extremities: No digital cyanosis No clubbing Pedal pulses intact and symmetrical Radial pulses intact and symmetrical No calf tenderness Psychiatric: Alert and oriented to person, place and time Appropriate affect fair judgement Neuro Muscles Strength 5/5 in all 4 extremities Sensation to light touch grossly present throughout Cranial nerves II-XII grossly intact Past Medical History Past Medical History: Diabetes Mellitus, Hypertension History of Any Multi-Drug Resistant Organisms: None Reported Past Surgical History: Cholecystectomy, Orthopedic Surgery Additional Past Surgical History / Comment(s): Vesectomy, L meniscus repair Past Anesthesia/Blood Transfusion Reactions: No Reported Reaction Past Psychological History: Anxiety, Depression Smoking Status: Never smoker Past Alcohol Use History: Occasional Past Drug Use History: Marijuana - Past Family History Mother History Unknown: Yes Medications and Allergies Home Medications Medication Instructions Recorded Confirmed Type Aspirin 162 mg PO ONCE PRN 07/24/20 07/24/20 History Ibuprofen [Motrin Ib] 600 mg PO Q8H PRN 07/24/20 07/24/20 History amLODIPine [Norvasc] 5 mg PO DAILY #14 tab 07/24/20 Rx metFORMIN HCL [Glucophage] 1,000 mg PO BID 07/24/20 07/24/20 History Ibuprofen [Motrin] 600 mg PO Q8HR PRN #24 tab 12/27/22 Rx Allergies Allergy/AdvReac Type Severity Reaction Status Date / Time No Known Allergies Allergy Verified 06/18/24 20:56 Physical Exam Vitals: Vital Signs Temp Pulse Pulse Resp BP BP Pulse Ox 06/19/24 21:00 97.0 F L 87 16 158/95 97 06/19/24 08:07 98.0 F 90 176/104 96 06/19/24 06:09 97.8 F 78 16 197/102 99 06/19/24 04:56 98.2 F 82 17 181/99 97 Cranial Nerve Examination - Cranial Nerves Cranial Nerve II- Optic: Intact Cranial Nerve III- Oculomotor: Intact Cranial Nerve IV- Trochlear: Intact Cranial Nerve V- Trigeminal: Intact Cranial Nerve - Abducens: Intact Cranial Nerve VII- Facial: Intact Cranial Nerve VIII- Auditory: Intact Cranial Nerve IX- Glossopharyngeal: Intact Cranial Nerve X- Vagus: Intact Cranial Nerve XI- Accessory: Intact Cranial Nerve XII- Hypoglossal: Intact Results CBC & Chem 7: 06/18/24 20:53 06/18/24 20:53 Labs: Abnormal Lab Results - Last 24 Hours (Table) 06/19/24 06/19/24 06/19/24 Range/Units 07:49 09:25 12:52 POC Glucose (mg/dL) 330 H 259 H (70-110) mg/dL Hemoglobin A1c 13.3 H (<=6.0) % 06/19/24 06/19/24 Range/Units 17:44 20:15 POC Glucose (mg/dL) 244 H 264 H (70-110) mg/dL Hemoglobin A1c (<=6.0) % Assessment and Plan Assessment: poorly controlled DM a1c of 13 patient should be on insulin at home, he will need new script prior to discharge insulin sliding scale for now patient on metformin at home hypertension poorly controlled, non compliant continue amlodipine 5 mg po daily monitor vital signs labs reviewed a1c 13 hyperglycemia thank you for this consultation
[2024-06-20 08:10] LABS: Glucose,Whole Blood 254 mg/dL (70-110)
--- NOTE | 2024-06-20 11:20 | P.PN ---
Progress Note - Text Progress Note Date: 06/20/24 Interval History: Patient was seen in bed and was directable and agreeable to speak with casualty underwriter in the office. Patient appeared more bright in affect, has been tending to his ADLs. He states he does not wish to attend groups due to him being a private person however he does not mind one-on-one time. He feels as though he is experiencing caffeine withdrawal described as grogginess, slight headache due to him not having his usual serving of pop. He feels as though his depression is better, goal oriented today. He states his will visit him tonight during visitation. At this time patient denies any suicidal or homicidal ideations, intent or plan. Patient denies any auditory, visual hallucinations and denies any paranoia or delusions. Patient denies any side effects from the medications and has been compliant with meds. Mental Status Exam: General Appearance: Patient appears to be stated age is alert, directable, and cooperative. Behavior: Patient is calmly seated without any agitated behavior. Speech: Patient's speech is fluent and nonpressured. Mood/Affect: Mood is improving mildly, affect is congruent and more reactive. Suicidality/Homicidality: Patient denies having any suicidal or homicidal ideation intent or plan. Perceptions: Patient denies any visual hallucinations and denies any auditory hallucinations Though content/process: There is no evidence of any delusional thought content and thought process is linear and goal-directed. Memory and concentration: AOX3, grossly intact for the purposes of this session Judgment and insight: Improving mildly Assessment Major depressive disorder, recurrent, severe Suicide attempt via OD Generalized anxiety disorder Plan: -Patient continues to meet criteria for inpatient psychiatric admission for symptom stabilization and safety. Patient has signed adult voluntary form and medication consent and was placed in patient's chart. -Medications: Increase Zoloft to 100 mg daily for depression/anxiety, continue Abilify 5 mg daily for mood stabilization/adjunct -When necessary Ativan and Haldol for agitation/aggression. -Labs: A1c is elevated at 13.3, patient currently on metformin and insulin and was encouraged to adhere to these medications and follow-up with his PCP upon discharge -SW on board for discharge planning. Encouraged the patient to participate in milieu. Anticipate discharge back home with on Tuesday
[2024-06-20 11:42] VITALS: BMI 34.4
[2024-06-20] MEDS: SERTRALINE 50 MG TAB PO ONE (12:28)
[2024-06-20 12:33] LABS: Glucose,Whole Blood 264 mg/dL (70-110)
[2024-06-20 17:41] LABS: Glucose,Whole Blood 215 mg/dL (70-110)
[2024-06-20 20:07] LABS: Glucose,Whole Blood 343 mg/dL (70-110)
[2024-06-21 07:53] LABS: Glucose,Whole Blood 275 mg/dL (70-110)
[2024-06-21] MEDS: INSULIN GLARGINE (LANTUS) 100 UNIT/ML SYR SQ SCH (07:55)
[2024-06-21] MEDS: amLODIPine 5 MG TAB PO SCH (07:58)
[2024-06-21] MEDS: SERTRALINE 100 MG TAB PO SCH (07:58)
--- NOTE | 2024-06-21 10:50 | P.PN ---
Progress Note - Text Progress Note Date: 06/21/24 Interval History: Patient was seen in bed and was directable and agreeable to speak with movie writer in the office. He reports loose stools that began last night, denying any blood in his stool unlikely related to the increase in Zoloft. He states his visited him yesterday during visitations and that she will be able to pick him up tomorrow once discharged. He reports poor sleep however due to the environment. He was goal oriented today. He feels as though his frustration tolerance has improved with the Abilify. At this time patient denies any suicidal or homicidal ideations, intent or plan. Patient denies any auditory, visual hallucinations and denies any paranoia or delusions. Patient has been compliant with meds. Mental Status Exam: General Appearance: Patient appears to be stated age is alert, directable, and cooperative. Behavior: Patient is calmly seated without any agitated behavior. Speech: Patient's speech is fluent and nonpressured. Mood/Affect: Mood is improving mildly, affect is congruent and blunted but reactive. Suicidality/Homicidality: Patient denies having any suicidal or homicidal ideation intent or plan. Perceptions: Patient denies any visual hallucinations and denies any auditory hallucinations Though content/process: There is no evidence of any delusional thought content and thought process is linear and goal-directed. Memory and concentration: AOX3, grossly intact for the purposes of this session Judgment and insight: Improving mildly Assessment Major depressive disorder, recurrent, severe Suicide attempt via OD Generalized anxiety disorder Plan: -Patient continues to meet criteria for inpatient psychiatric admission for symptom stabilization and safety. Patient has signed adult voluntary form and medication consent and was placed in patient's chart. -Medications: Continue Zoloft 100 mg daily for depression/anxiety, Abilify 5 mg daily for mood stabilization/adjunct -When necessary Ativan and Haldol for agitation/aggression. -Labs: A1c elevated at 13.3 and patient was started on insulin and metformin and he was encouraged to follow-up with his PCP upon discharge which he agreed -SW on board for discharge planning. Encouraged the patient to participate in milieu. Anticipate discharge back home with tomorrow
[2024-06-21 12:42] LABS: Glucose,Whole Blood 232 mg/dL (70-110)
[2024-06-21 17:48] LABS: Glucose,Whole Blood 202 mg/dL (70-110)
[2024-06-21 20:02] LABS: Glucose,Whole Blood 268 mg/dL (70-110)
[2024-06-21] MEDS: traZODone HCL 50 MG TAB PO PRN (20:10)
[2024-06-22 07:47] LABS: Glucose,Whole Blood 246 mg/dL (70-110)
[2024-06-22 08:08] VITALS: BP 156/99; PULSE 84; RESP 16; TEMP 97.8
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
== END 2024-06-22 10:47 | disposition home or self-care (01) | DRG 812 ==
LOC: EC 20:43 → 3MHU 06-19 04:31
PROVIDERS: ADMIT Psychiatry & Neurology Psychiatry; ATTEND Psychiatry & Neurology Psychiatry
DX: T48.5X1A Poisoning by other anti-common-cold drugs, accidental (unintentional), initial encounter (principal); E11.65 Type 2 diabetes mellitus with hyperglycemia; F33.2 Major depressive disorder, recurrent severe without psychotic features; F41.1 Generalized anxiety disorder; R45.851 Suicidal ideations; I10 Essential (primary) hypertension; Z59.71 Insufficient health insurance coverage; Z79.84 Long term (current) use of oral hypoglycemic drugs; Z79.899 Other long term (current) drug therapy; Z91.199 Patient's noncompliance with other medical treatment and regimen due to unspecified reason; Z91.51 Personal history of suicidal behavior; Z90.49 Acquired absence of other specified parts of digestive tract
CPT/HCPCS: 36415; 80053; 80143; 80179; 80306; 80320; 81001; 83036; 83690; 84443; 84484; 85025; 85610; 87635; 93005; 96360; 96361; 99285

== ENCOUNTER 2024-09-14 17:19 | Emergency (ER) | payer OTHER ==
--- NOTE | 2024-09-14 18:18 | ED ---
General Adult HPI <Ceicly Laureano - Last Filed: 09/14/24 21:43> <David Castaneda - Last Filed: 09/14/24 23:06> - General Source: patient Mode of arrival: ambulatory Limitations: no limitations <Adriana Castellano - Last Filed: 09/15/24 10:40> - General Chief complaint: ENT Stated complaint: Headache Time Seen by Provider: 09/14/24 17:34 - History of Present Illness Initial comments: 48-year-old male with diabetes, hypertension here for ear pain and headache. Patient reported that about 3 weeks ago he started to have ear fullness on the left ear and has attempted to clear the fullness with alcohol and vinegar drops and candling. He then began to have a throbbing headache about a week ago which was gradually worsening, and was at its worst on Tuesday it was nonradiating, bitemporal with associated lightheadedness and photophobia. He has tried Excedrin but it has not worked. Denied fever, chills, ear ringing, nausea, vomiting, speech changes, vision changes, facial asymmetry. (Cecily Laureano) - Related Data Home Medications Medication Instructions Recorded Confirmed metFORMIN HCL [Glucophage] 1,000 mg PO BID 07/24/20 07/24/20 Previous Rx's Medication Instructions Recorded ARIPiprazole [Abilify] 5 mg PO DAILY 30 Days #30 tab 06/22/24 Sertraline [Zoloft] 100 mg PO DAILY 30 Days #30 tab 06/22/24 amLODIPine [Norvasc] 5 mg PO DAILY 30 Days #30 tab 06/22/24 metFORMIN HCL [Glucophage] 1,000 mg PO BID-W/MEALS 30 Days 06/22/24 #120 tab traZODone HCL [Desyrel] 50 mg PO HS PRN 30 Days #30 tab 06/22/24 HYDROcodone/APAP 5-325MG [[place] 1 tab PO Q6HR PRN 3 Days #12 tab 09/14/24 5-325] Allergies Allergy/AdvReac Type Severity Reaction Status Date / Time No Known Allergies Allergy Verified 09/14/24 17:36 Review of Systems ROS Other: All systems not noted in ROS Statement are negative. <Cecily Laureano - Last Filed: 09/14/24 21:43> ROS Other: All systems not noted in ROS Statement are negative. <David Castaneda - Last Filed: 09/14/24 23:06> ROS Other: All systems not noted in ROS Statement are negative. <Adriana Castellaon - Last Filed: 09/15/24 10:40> ROS Statement: Those systems with pertinent positive or pertinent negative responses have been documented in the HPI. Past Medical History Past Medical History: Diabetes Mellitus <Cecily Laureano - Last Filed: 09/14/24 21:43> Past Medical History: Hypertension History of Any Multi-Drug Resistant Organisms: None Reported Past Surgical History: Cholecystectomy, Orthopedic Surgery Additional Past Surgical History / Comment(s): Vesectomy Past Anesthesia/Blood Transfusion Reactions: No Reported Reaction Past Psychological History: No Psychological Hx Reported Smoking Status: Never smoker Past Alcohol Use History: Occasional Past Drug Use History: None Reported - Past Family History Mother History Unknown: Yes <Adriana Castellano - Last Filed: 09/15/24 10:40> General Exam <Cecily Laureano - Last Filed: 09/14/24 21:43> Limitations: no limitations <Adriana Castellano - Last Filed: 09/15/24 10:40> - General Exam Comments Initial Comments: Physical examination: Vital signs reviewed General: non toxic, no distress, appears at stated age Head: atraumatic, normocephalic, symmetric, tenderness on frontal sinus, tenderness in the right maxillary sinus area, swelling noted left postauricular area Eyes: Anicteric, EOMI, PERRLA Ears: No masses or lesions on external ear bilateral, TM intact on right ear, left ear shows impacted cerumen Mouth: no lip lesion, mucus membranes moist, no erythema or swelling the posterior throat Cardiovascular: S1S2 reg, no murmur Lungs: CTA bilateral, no rhonchi, no rales, no accessory muscle use Abdominal: soft, nondistended, nontender to palpation, no guarding Ext: muscle strength 5 out of 5 in all 4 extremities grossly, no gross muscle atrophy, no contractures, positive dorsalis pedis pulse bilateral, no edema Neuro: no gross focal neuro deficits Psych: Alert and oriented x3, appropriate affect and mood (Cecily Laureano) Course <Cecily Laureano - Last Filed: 09/14/24 21:43> Vital Signs 09/14/24 09/14/24 09/14/24 17:34 20:34 23:19 Temperature 98.3 F 97.6 F 97.9 F Pulse Rate 92 58 L 87 Respiratory 22 16 18 Rate Blood Pressure 147/102 112/71 136/86 O2 Sat by Pulse 98 94 L 97 Oximetry - Reevaluation(s) Reevaluation #1: 09/14/24 21:04 Attempted to irrigate left ear and some cerumen remained. Manual removal with ear pick done as well and most of cerumen was removed, noted persistent ear pain and granulation tissue. Headache still persists despite having IV reglan, benadryl and toradol. Ear pain still persists. (Cecily Laureano) Medical Decision Making - Lab Data Result diagrams: 09/14/24 19:30 09/14/24 19:30 <Cecily Laureano - Last Filed: 09/14/24 21:43> - Lab Data Result diagrams: 09/14/24 19:30 09/14/24 19:30 <David Castaneda - Last Filed: 09/14/24 23:06> - Lab Data Result diagrams: 09/14/24 19:30 09/14/24 19:30 <Adriana Castellano - Last Filed: 09/15/24 10:40> - Medical Decision Making Was pt. sent in by a medical professional or institution (, PATO, DOCTOR OF AUDIOLOGY, urgent care, hospital, or intermediate...) When possible be specific @ -No Did you speak to anyone other than the patient for history (EMS, parent, family, police, friend...)? What history was obtained from this source @ -No Did you review nursing and triage notes (agree or disagree)? Why? @ -I reviewed and agree with nursing and triage notes Were old charts reviewed (outside hosp., previous admission, EMS record, old EKG, old radiological studies, urgent care reports/EKG's, intermediate records)? Report findings @ -No old charts were reviewed Differential Diagnosis? @ -Differential Headache: Migraine, tension, cluster, carbon monoxide, central venous thrombosis, pension karma temporal arteritis, acute closure glaucoma, intercranial hemorrhage, mastoiditis, sinusitis, head injury, this is not meant to be an all-inclusive list. EKG interpreted by me (3pts min.). @ -None done X-rays interpreted by me (1pt min.). @ -None done CT interpreted by me (1pt min.). @ -CT showed no overt masses, midline shift or fluid accumulation U/S interpreted by me (1pt. min.). @ -None done What testing was considered but not performed or refused? (CT, X-rays, U/S, labs)? Why? @ -None What meds were considered but not given or refused? Why? @ -None Did you discuss the management of the patient with other professionals (professionals i.e. , PA, DOCTOR OF AUDIOLOGY, lab, RT, psych nurse, family welfare social work professor, fbi sharpshooter, teacher, legal compliance officer, rn field case manager)? Give summary @ -Dr. Castellano, supervising physician Was smoking cessation discussed for >3mins.? @ -No Was critical care preformed (if so, how long)? @ -No Were there social determinants of health that impacted care today? How? (Homelessness, low income, unemployed, alcoholism, drug addiction, transportation, low edu. Level, literacy, decrease access to med. care, fci, rehab)? @ -No Was there de-escalation of care discussed even if they declined (Discuss DNR or withdrawal of care, Hospice)? DNR status @ -No What co-morbidities impacted this encounter? (DM, HTN, Smoking, COPD, CAD, Cancer, CVA, ARF, Chemo, Hep., AIDS, mental health diagnosis, sleep apnea, morbid obesity)? @ -None Was patient admitted / discharged? Hospital course, mention meds given and route, prescriptions, significant lab abnormalities, going to OR and other pertinent info. @ -Admitted. CT brain without contrast and CT angiography ordered. Given IV Reglan, Benadryl, ketorolac. Headache persisted despite being given IV Reglan Benadryl ketorolac and IV Compazine as attempted. After left ear irrigation noted persistent ear pain with redness and granulation tissue noted. Concerning for malignant otitis externa. Undiagnosed new problem with uncertain prognosis? @ -[No] Drug Therapy requiring intensive monitoring for toxicity (Heparin, Nitro, Insulin, Cardizem)? @ -[No] Were any procedures done? @ -[No] Diagnosis/symptom? @ -[default] Acute, or Chronic, or Acute on Chronic? @ -[default] Uncomplicated (without systemic symptoms) or Complicated (systemic symptoms)? @ -[default] Side effects of treatment? @ -[No] Exacerbation, Progression, or Severe Exacerbation? @ -[No] Poses a threat to life or bodily function? How? (Chest pain, USA, SC, pneumonia, PE, COPD, DKA, ARF, appy, cholecystitis, CVA, Diverticulitis, Homicidal, Suicidal, threat to staff... and all critical care pts) @ -[No] Signed out case to Dr. Castaneda at end of shift 2114 (Cecily Laureano) Patient care signed out to by previous shift resident, Dr. Laureano along with attending physician Dr. Castellano. Briefly, patient is a 40-year-old male history of migraines presents to the emergency department with headaches. He has a history of headaches. He had extensive workup including CT brain CT angiography of the head and neck. No imaging abnormalities noted. Case was discussed with Dr. John who requested that patient given some Dilaudid and determine disposition. Patient evaluated 11:05 PM states that his headache is improved after the Dilaudid. Disposition options were discussed. Patient reports that he would like to be discharged. Given strict return precautions. Otherwise advised to follow-up with primary care doctor. (David Castaneda) I personally saw the patient and performed the critical portion of the service. I discussed the patient care with the resident physician. I directed management, care planning and final disposition of the patient. This includes, but not limited to, review of all lab work, radiological studies, EKG's, consultations, vital signs, and nursing notes. Patient is a 48-year-old male, past medical migraines type 2 diabetes presenting today for migraine headache and left ear pain x 4 days. No focal neurologic deficits. No fevers. Patient does state pain is worse in any migraine he has had in the past. Exam of left ear showed impacted cerumen, which was subsequently irrigated and then gently disimpacted with ear currette. Further exam showed scant waxy granulation tissue w/in EAC however no erythema, no bulging TM or tympanic erythema, no swelling of the EAC or redness/swelling of the auricle or posterior auricular region. No mastoid TTP. He will receive a migraine cocktail will CT brain/ CTA to assess for mass or hemorrhage, though suspicion for this given duration of symptoms, and improvement with Excedrin and no focal neurologic deficits. Pt's LEWIS did not improve with migraine cocktail. Did consider admission however when case was discussed with Dr. John for admission for intractable LEWIS, he recommended trialing dilaudid prior to admitting pt. Pt was signed out to oncoming physician Dr. Licea pending pain control and re-eval. CT interpreted by me ( 1pt min.) @CT brain, CTA head and neck reviewed by myself and evidence of hemorrhage, aneurysm, or dissection or large vessel occlusion Critical care time of [0] minutes excluding separately billable procedures was spent in conjunction with critical care activities provided by the Resident and Attending simultaneously. I was present during [no procedures] for all critical portions of the procedure and as immediately available to furnish service during the entire procedure. (Adriana Castellano) - Lab Data Lab Results 09/14/24 09/14/24 09/14/24 Range/Units 19:30 19:30 19:30 WBC 7.07 (4.50-10.00) 10*3/uL RBC 5.46 (4.40-5.60) 10*6/uL Hgb 16.6 (13.0-17.0) g/dL Hct 44.4 (39.6-50.0) % MCV 81.3 (80.0-97.0) fL MCH 30.4 (27.0-32.0) pg MCHC 37.4 H (32.0-37.0) g/dL Plt Count 207 (140-440) 10*3/uL MPV 9.2 L (9.5-12.2) fL Immature Gran % (Auto) 0.7 % Neutrophils % 58.8 % Lymphocytes % 28.9 % Monocytes % 8.5 % Eosinophils % 2.3 % Basophils % 0.8 % Immature Gran # 0.05 H (0.00-0.04) 10*3/uL Neutrophils # 4.16 (1.80-7.70) 10*3/uL Lymphocytes # 2.04 (0.90-5.00) 10*3/uL Monocytes # 0.60 (0.20-1.00) 10*3/uL Eosinophils # 0.16 (0.04-0.35) 10*3/uL Basophils # 0.06 (0.00-0.10) 10*3/uL PT 10.7 (10.0-12.5) sec INR 1.0 (<1.2) APTT 21.0 L (22.0-30.0) sec Sodium 134 L (137-145) mmol/L Potassium 4.0 (3.5-5.1) mmol/L Chloride 99 (98-107) mmol/L Carbon Dioxide 24 (22-30) mmol/L Anion Gap 11 mmol/L BUN 11 (9-20) mg/dL Creatinine 0.50 L (0.66-1.25) mg/dL Est GFR (CKD-EPI)AfAm >90 (>60 ml/min/1.73 sqM) Est GFR (CKD-EPI)NonAf >90 (>60 ml/min/1.73 sqM) Glucose 340 H (74-99) mg/dL Calcium 9.3 (8.4-10.2) mg/dL Disposition <Cecily Laureano - Last Filed: 09/14/24 21:43> Is patient prescribed a controlled substance at d/c from ED?: No Time of Disposition: 23:07 <David Castaneda - Last Filed: 09/14/24 23:06> <Adriana Castellano - Last Filed: 09/15/24 10:40> Clinical Impression: Headache Disposition: HOME SELF-CARE Condition: Fair Instructions (If sedation given, give patient instructions): Acute Headache (ED) Prescriptions: HYDROcodone/APAP 5-325MG [[place] 5-325] 1 tab PO Q6HR PRN 3 Days #12 tab PRN Reason: Severe Pain Referrals: Westley Patel Jr, DO [Primary Care Provider] - 1-2 days
[2024-09-14] MEDS: KETOROLAC 15 MG/ML 1 ML VIAL IVP STA (19:32)
[2024-09-14] MEDS: diphenhydrAMINE 50 MG/ML 1 ML VIAL IVP STA (19:33)
[2024-09-14] MEDS: METOCLOPRAMIDE 5 MG/ML 2 ML VIAL IVP STA (19:34)
[2024-09-14 19:38] LABS: Basophils # (A) 0.06 10*3/uL (0.00-0.10); Basophils % (A) 0.8 %; Eosinophils # (A) 0.16 10*3/uL (0.04-0.35); Eosinophils % (A) 2.3 %; HCT 44.4 % (39.6-50.0); HGB 16.6 g/dL (13.0-17.0); Lymphocytes # (A) 2.04 10*3/uL (0.90-5.00); Lymphocytes % (A) 28.9 %; MCH 30.4 pg (27.0-32.0); MCHC 37.4 g/dL (32.0-37.0); MCV 81.3 fL (80.0-97.0); Monocytes # (A) 0.60 10*3/uL (0.20-1.00); Monocytes % (A) 8.5 %; Neutrophils # (A) 4.16 10*3/uL (1.80-7.70); Neutrophils % (A) 58.8 %; Platelet Count 207 10*3/uL (140-440); RBC 5.46 10*6/uL (4.40-5.60); RDW 12.3 % (11.5-14.5); WBC 7.07 10*3/uL (4.50-10.00)
[2024-09-14 19:51] LABS: African American GFR (CKD) >90 (>60 ml/min/1.73 sqM); Anion Gap 11 mmol/L; Blood Urea Nitrogen 11 mg/dL (9-20); Calcium 9.3 mg/dL (8.4-10.2); Carbon Dioxide 24 mmol/L (22-30); Chloride 99 mmol/L (98-107); Glucose 340 mg/dL (74-99); Non-African American GFR(CKD) >90 (>60 ml/min/1.73 sqM); Potassium 4.0 mmol/L (3.5-5.1); Sodium 134 mmol/L (137-145)
[2024-09-14 19:57] LABS: INR 1.0 (<1.2); Prothrombin Time 10.7 sec (10.0-12.5)
[2024-09-14 20:05] LABS: Partial Thromboplastin Time 21.0 sec (22.0-30.0)
--- NOTE | 2024-09-14 20:31 | CT ---
EXAMINATION TYPE: CT brain wo con DATE OF EXAM: 09/14/2024 COMPARISON: 09/14/2024 CLINICAL INDICATION: Male, 48 years old with history of new LEWIS, worse then usual, L. ear pain; PHH, M IGRAINE HEADACHE TECHNIQUE: CT of the brain performed without contrast with sagittal and coronal reformats. CT DLP: 1106.[address] CTDI: mGy Automated exposure control for dose reduction was used. FINDINGS: There is no acute intracranial hemorrhage, mass effect, or midline shift identified. The ventricles and sulci are within normal limits in size. The globes are intact and the visualized sinuses are sarahy ar. IMPRESSION: No acute intracranial hemorrhage, mass effect, or midline shift is seen. [facility], , 09/14/2024 8:29 PM
--- NOTE | 2024-09-14 21:17 | CT ---
EXAMINATION TYPE: CT angio head neck DATE OF EXAM: 09/14/2024 8:38 PM COMPARISON: None. CLINICAL INDICATION: Male, 48 years old with history of LEWIS, onset tuesday, . ear pain, LEWIS worse than [place], MIGRAINE HEADACHE, TECHNIQUE: Axially acquired helical CT Angiogram of the Neck was obtained with and without contrast. Axial images are supplemented with coronal and sagittal MIP reconstructions. 3D reconstructions were also performed and were post-processed at an independent workstation. Estimated carotid stenosis was calculated using the NASCET criteria. Contrast CTA of the [place] was performed 3-D recons truction imaging obtained at a separate workstation. IV CONTRAST: with IV Contrast, patient injected with 65 mL of Isovue 370. (None if empty) CT DLP: 942 mGycm, Automated exposure control for dose reduction was used. FINDINGS: NECK: Right carotid system: Mild plaque is seen of the right common carotid artery. There is mild plaque a lso noted at the carotid bulb and proximal ICA. No significant diameter reduction. ECA is patent. Right vertebral artery appears unremarkable. Left carotid system: Mild plaque is seen of the left common carotid artery. There is mild plaque als o noted at the carotid bulb and proximal ICA. No significant diameter reduction. ECA is patent. Lef t vertebral artery appears unremarkable. BRAIN: Vertebrobasilar system as well as intracranial portions of the internal carotid arteries and their ma anette tributaries are patent. I do not see evidence for sizable aneurysm or vascular malformation. Pl ease note MRI provides greater sensitivity and specificity. Visualized brain appears grossly unremar kable. IMPRESSION: 1. No evidence for hemodynamically significant stenosis at the carotid bifurcations. No significant diameter reduction to account for the patient's symptoms. 2. No evidence for intracranial aneurysm or high-grade stenosis. [facility], , 09/14/2024 9:11 PM
[2024-09-14] MEDS: SODIUM CHLORIDE 0.9% 1,000 ML IV ONE (21:44)
[2024-09-14] MEDS: HYDROmorphone 1 MG/ML 1 ML SYRINGE IVP STA (21:47)
[2024-09-14] MEDS: PROCHLORPERAZINE INJ 10 MG/2 ML VIAL IVP STA (21:48)
[2024-09-14] MEDS: CEFEPIME 2 GM in SODIUM CHLORIDE 0.9% 100 ML IVPB STA (22:22)
[2024-09-14 23:21] VITALS: BP 136/86; PULSE 87; RESP 18; TEMP 97.9
== END 2024-09-14 23:21 | disposition home or self-care (01) ==
LOC: EC 17:19
DX: G43.909 Migraine, unspecified, not intractable, without status migrainosus (principal)
CPT/HCPCS: 36415; 80048; 85025; 85610; 85730; 70496; 70450; 70498; 99284; 96374; 96375; 96361; J1200; J0780; J2765; J1171; J1885; Q9967